=== PATIENT | female | born 1980 | race Caucasian/White ===

== ENCOUNTER 2016-05-24 14:12 | Outpatient (CLI) | payer MEDICAID | END 2016-05-24 14:13 | disposition home or self-care (01) | DX: J20.9 Acute bronchitis, unspecified (principal) ==

== ENCOUNTER 2016-07-02 14:13 | Outpatient (CLI) | payer MEDICAID | END 2016-07-02 14:14 | DX: I10 Essential (primary) hypertension (principal); Z13.1 Encounter for screening for diabetes mellitus; Z13.220 Encounter for screening for lipoid disorders; E66.01 Morbid (severe) obesity due to excess calories ==

== ENCOUNTER 2016-07-02 14:16 | Outpatient (CLI) | payer MEDICAID ==
--- NOTE | 2016-07-02 15:33 | XRAY Report ---
THREE-VIEW RIGHT KNEE: 07/02/2016 CLINICAL INDICATION: Pain. FINDINGS: AP, lateral, sunrise views of the right knee demonstrate no evidence of fracture or disloc ation. The joint spaces are preserved. No effusion is present. IMPRESSION: NORMAL RIGHT KNEE. JOB #: [id number] EXT JOB #:[id number]
== END 2016-07-02 14:17 | disposition home or self-care (01) ==
LOC: DI.S 14:16
PROVIDERS: ATTEND Nurse Practitioner Family
DX: M25.561 Pain in right knee (principal)

== ENCOUNTER 2016-07-25 12:35 | Outpatient (CLI) | payer MEDICAID | END 2016-07-25 12:36 | disposition home or self-care (01) | DX: L03.90 Cellulitis, unspecified (principal) ==

== ENCOUNTER 2016-07-25 13:18 | Outpatient (CLI) | payer MEDICAID | END 2016-07-25 13:19 | DX: L03.90 Cellulitis, unspecified (principal) ==

== ENCOUNTER 2016-11-27 14:55 | Outpatient (CLI) | payer MEDICAID ==
--- NOTE | 2016-11-27 16:33 | XRAY Report ---
TWO-VIEW CHEST: 11/27/2016 CLINICAL INDICATION: Shortness of breath. FINDINGS: Frontal and lateral views of the chest are compared to previous films of 05/24/2016. The cardiac silhouette is within normal limits. The lungs remain clear. No effusion or pneumothorax is present. IMPRESSION: NORMAL CHEST, UNCHANGED. :9 JOB #: [id number] EXT JOB #:[id number]
== END 2016-11-27 14:56 | disposition home or self-care (01) ==
LOC: DI.S 14:55
PROVIDERS: ATTEND Nurse Practitioner Family
DX: R06.02 Shortness of breath (principal)
CPT/HCPCS: 71020

== ENCOUNTER 2017-03-12 18:24 | Emergency (ER) | payer MEDICAID ==
--- NOTE | 2017-03-12 18:41 | ED Physician Documentation ---
History of Present Illness - Stated complaint Stated Complaint: CP - Chief complaint Chief Complaint: General - History obtained from History obtained from: Patient - History of Present Illness Timing: Other (36-year-old woman who had a DVT a little over a year ago because of combination of smoking, obesity, and oral contraceptive pills. She was maintained on Xarelto for a year and has been off of it for about 2 months. Last night she developed mild pain behind the left breast which today radiated in the left arm. She is currently pain-free. She does complain of a little bit of shortness of breath but denies pedal edema or calf pain.) Review of Systems Ten Systems: 10 systems reviewed and negative Constitutional: denies: Fever, Chills, Fatigue Cardiac: denies: Palpitations Respiratory: denies: Dyspnea, Cough PD PAST MEDICAL HISTORY - Past Medical History Past Medical History: Yes Cardiovascular: Hypertension, Deep vein thrombosis Respiratory: None Neuro: None Endocrine/Autoimmune: None GI: None STUDIO ASSOCIATE: None : None HEENT: None Psych: Depression, Anxiety Musculoskeletal: None Derm: None - Past Surgical History Past Surgical History: Yes General: EGD - Present Medications Home Medications: Ambulatory Orders Medication Instructions Recorded Confirmed ARIPiprazole [Abilify] 15 mg PO DAILY 11/01/13 03/12/17 DULoxetine [Cymbalta] 90 mg PO DAILY 11/01/13 03/12/17 Methadone 7 mg PO DAILY 06/08/15 03/12/17 Metoclopramide [Reglan] 10 mg PO DAILY 06/08/15 03/12/17 clonazePAM [Clonazepam] 1 mg PO TID 03/12/17 03/12/17 - Allergies Allergies/Adverse Reactions: Allergies Allergy/AdvReac Type Severity Reaction Status Date / Time No Known Drug Allergies Allergy Verified 05/20/15 14:13 - Social History Does the pt smoke?: Yes Smoking Status: Current every day smoker Does the pt drink ETOH?: No Does the pt have substance abuse?: No - Family History Family history: reports: Non contributory - Immunizations Immunizations are current?: Yes - POLST Patient has POLST: No PD ED PE NORMAL - Vitals Vital signs reviewed: Yes - General General: Alert and oriented X 3, No acute distress - HEENT HEENT: PERRL, EOMI - Neck Neck: Supple, no meningeal sign, No bony TTP - Cardiac Cardiac: Other (Tachycardic, regular, no murmur) - Respiratory Respiratory: No respiratory distress, Clear bilaterally - Abdomen Abdomen: Soft, Non tender - Extremities Extremities: No edema, No calf tenderness / cord - Neuro Neuro: Alert and oriented X 3, Normal speech - Psych Psych: Normal mood, Normal affect Results - Vitals Vitals: Vital Signs - 24 hr 03/12/17 03/12/17 03/12/17 18:30 20:27 21:11 Temperature 36.2 C L Heart Rate 129 H 99 103 H Respiratory 18 17 22 Rate Blood Pressure 159/104 H 155/78 H 159/109 H O2 Saturation 96 94 95 Oxygen O2 Source Room air - EKG (time done) 1832 Rate: Rate (enter#) (116) Rhythm: NSR, LAE [place]: Normal Intervals: Normal [place] QRS: Normal Ischemia: Normal ST segments Computer interpretation: Agree with computer - Labs Labs: Laboratory Tests 03/12/17 03/12/17 03/12/17 18:45 19:14 19:14 WBC 10.7 RBC 5.02 Hgb 14.6 Hct 43.8 MCV 87.3 MCH 29.1 MCHC 33.4 RDW 13.4 Plt Count 301 MPV 9.1 Neut # 7.5 H Lymph # 2.6 [place] # 0.5 Eos # 0.1 Baso # 0.1 Absolute Nucleated RBC 0.00 Nucleated RBC % 0.0 D-Dimer Sodium 136 Potassium 3.2 L Chloride 100 L Carbon Dioxide 25 Anion Gap 11.0 BUN 12 Creatinine 0.8 Estimated GFR (MDRD) 82 L Glucose 105 H Calcium 9.4 Total Bilirubin 0.4 AST 18 ALT 18 Alkaline Phosphatase 72 Troponin I Total Protein 7.1 Albumin 4.0 Globulin 3.1 Albumin/Globulin Ratio 1.3 Lipase 17 L Urine Color YELLOW Urine Clarity CLEAR Urine pH 6.0 Ur Specific [place] 1.025 Urine Protein NEGATIVE Urine Glucose (UA) NEGATIVE Urine Ketones 15 H Urine Occult Blood NEGATIVE Urine Nitrite NEGATIVE Urine Bilirubin NEGATIVE Urine Urobilinogen 0.2 (NORMAL) Ur Leukocyte Esterase NEGATIVE Ur Microscopic Review NOT INDICATED Urine Culture Comments NOT INDICATED Urine HCG, Qual NEGATIVE 03/12/17 03/12/17 19:14 19:14 WBC RBC Hgb Hct MCV MCH MCHC RDW Plt Count MPV Neut # Lymph # [place] # Eos # Baso # Absolute Nucleated RBC Nucleated RBC % D-Dimer 215.0 Sodium Potassium Chloride Carbon Dioxide Anion Gap BUN Creatinine Estimated GFR (MDRD) Glucose Calcium Total Bilirubin AST ALT Alkaline Phosphatase Troponin I < 0.04 Total Protein Albumin Globulin Albumin/Globulin Ratio Lipase Urine Color Urine Clarity Urine pH Ur Specific [place] Urine Protein Urine Glucose (UA) Urine Ketones Urine Occult Blood Urine Nitrite Urine Bilirubin Urine Urobilinogen Ur Leukocyte Esterase Ur Microscopic Review Urine Culture Comments Urine HCG, Qual - Rads (name of study) CT Angio chest Radiology: EMP read contemporaneously (Suboptimal bolus timing, no large PE, fatty liver.) PD MEDICAL DECISION MAKING - ED course ED course: 36-year-old woman with history of DVT presents with acute chest pain and some tachycardia. The tachycardia resolved without specific intervention, potentially anxiety. Biggest concern of course was for PE given her history, CT angiogram was done, and the results were nondiagnostic because of poor contrast bolus timing. Given this this was followed with a d-dimer which was negative. Departure - Departure Disposition: 01 Home, Self Care Clinical Impression: Chest pain Qualifiers: Chest pain type: unspecified Qualified Code(s): R07.9 - Chest pain, unspecified Condition: Good Record reviewed to determine appropriate education?: Yes Instructions: ED Chest Pain NonCardiac Comments: Call your doctor to arrange a follow-up appointment, make the next available appointment. In the interim, return anytime if worse or if new symptoms develop. Your blood pressure was elevated today on check into the emergency department. This does not mean that you have hypertension, it is a common phenomenon to come to the emergency department and have elevated blood pressure. I recommend that you see your primary care physician within the week to have it rechecked when you are feeling better.
[2017-03-12 18:59] LABS: BILIRUBIN,URINE NEGATIVE (NEGATIVE)
[2017-03-12 19:00] LABS: HCG UR QUAL NEGATIVE; UA CHARGE (STRIP ONLY) YES; UR CULTURE IF IND NOT INDICATED
[2017-03-12 19:31] LABS: ALBUMIN/GLOBULIN RATIO 1.3 (1.0-2.2); BILIRUBIN,TOTAL 0.4 mg/dL (0.2-1.0); CALCIUM 9.4 mg/dL (8.5-10.3); CREATININE 0.8 mg/dL (0.4-1.0); POTASSIUM 3.2 mmol/L (3.5-5.0); TOTAL PROTEIN 7.1 g/dL (6.7-8.2)
[2017-03-12 19:33] LABS: BASOPHILS # (AUTO) 0.1 10^3/uL (0.0-0.1); BASOPHILS % (AUTO) 0.5 %; EOSINOPHILS # (AUTO) 0.1 10^3/uL (0.0-0.7); EOSINOPHILS % (AUTO) 1.3 %; HCT - HEMATOCRIT 43.8 % (37.0-47.0); HGB - HEMOGLOBIN 14.6 g/dL (12.0-16.0); LYMPHOCYTES # (AUTO) 2.6 10^3/uL (1.5-3.5); LYMPHOCYTES % (AUTO) 24.2 %; MEAN CORPUSCULAR HEMOGLOBIN 29.1 pg (27.0-31.0); MEAN CORPUSCULAR HGB CONC 33.4 g/dL (32.0-36.0); MEAN CORPUSCULAR VOLUME 87.3 fL (81.0-99.0); MEAN PLATELET VOLUME 9.1 fL (7.9-10.8); MONOCYTES # (AUTO) 0.5 10^3/uL (0.0-1.0); MONOCYTES % (AUTO) 4.3 %; NEUTROPHILS # (AUTO) 7.5 10^3/uL (1.5-6.6); NEUTROPHILS % (AUTO) 69.7 %; RED BLOOD COUNT 5.02 10^6/uL (4.20-5.40); RED CELL DISTRIBUTION WIDTH 13.4 % (12.0-15.0); UNCORRECTED WHITE BLOOD COUNT 10.7 x10^3/uL; WHITE BLOOD COUNT 10.7 x10^3/uL (4.8-10.8)
[2017-03-12] MEDS ORDERED: IOPAMIDOL-300 100 ML VIAL ONE (19:35)
[2017-03-12] MEDS ORDERED: IOPAMIDOL-300 100 ML VIAL IVP ONE (20:12)
--- NOTE | 2017-03-12 20:50 | CT Preliminary Report ---
Exam: CT CHEST ANGIO (PE) IMPRESSION: 1. Suboptimal bolus timing. Study nondiagnostic for pulmonary emboli. 2. No acute pulmonary process. 3. Fatty liver. No mass. [facility] SITE ID: [id number]
--- NOTE | 2017-03-12 21:01 | CT Report ---
EXAM: CT ANGIOGRAM CHEST EXAM DATE: 03/12/2017 08:19 PM. CLINICAL HISTORY: Chest pain, history of PE. COMPARISON: 11/27/2016. TECHNIQUE: Routine helical imaging was performed through the chest in the pulmonary arterial phase. I V Contrast: 80 mL of Isovue 300. Reconstructions: Coronal 3-D MIP reconstructions.Sagittal and calvo l. In accordance with CT protocol optimization, one or more of the following dose reduction techniques w ere utilized for this exam: automated exposure control, adjustment of mA and/or KV based on patient s ize, or use of iterative reconstructive technique. FINDINGS: Pulmonary Arteries: Diagnostic quality: Suboptimal through the segmental arteries. No evidence for acute or chronic centr al pulmonary emboli. Evaluation of the segmental and subsegmental pulmonary arteries is limited due t o suboptimal bolus timing. RV/LV is within normal limits. There is no interventricular septal bowing. There is no reflux of cont rast material in the IVC. Lungs/Pleura: No consolidation, nodules, or edema. No effusions or pneumothorax. Mediastinum: Normal. No cardiac enlargement or adenopathy. Thoracic Aorta: Unremarkable. Upper Abdomen: Small incidental hiatal hernia. Fatty liver. No mass. Other: None. IMPRESSION: 1. Suboptimal bolus timing. Study nondiagnostic for pulmonary emboli. 2. No acute pulmonary process. 3. Fatty liver. No mass. [facility] Referring Provider Line: [phone] SITE ID: [id number]
[2017-03-12] MEDS ORDERED: ACETAMINOPHEN 325 MG TABLET PO STA (21:24)
[2017-03-12] MEDS ORDERED: ACETAMINOPHEN 325 MG TABLET PO ONE (21:35)
[2017-03-12 21:54] VITALS: BP 154/114
== END 2017-03-12 21:54 | disposition home or self-care (01) ==
LOC: ED 18:24
DX: R07.9 Chest pain, unspecified (principal); R00.0 Tachycardia, unspecified; I10 Essential (primary) hypertension; E66.9 Obesity, unspecified; Z87.891 Personal history of nicotine dependence
CPT/HCPCS: 36415; 71275; 80053; 81003; 81025; 83690; 84484; 85025; 85379; 93005; 99284; A9270; Q9967; 81001; 87086

== ENCOUNTER 2017-06-10 14:12 | Outpatient (CLI) | payer MEDICAID ==
[2017-06-11 12:42] LABS: HEPATITIS C ANTIBODY NON-REACTIVE (NON-REACTIVE)
[2017-06-11 14:32] LABS: HIV AG/AB 4TH GEN NON-REACTIVE (NON-REACTIVE)
[2017-06-12 10:59] LABS: HSV 2 IGG TYPE SPECIFIC AB <0.90 index
== END 2017-06-10 14:13 | disposition home or self-care (01) ==
LOC: LAB.N 14:12
PROVIDERS: ATTEND Registered Nurse
DX: Z11.3 Encounter for screening for infections with a predominantly sexual mode of transmission (principal)
CPT/HCPCS: 36415; 81599; 86592; 86695; 86696; 86803; 87389; 87491; 87591

== ENCOUNTER 2017-06-10 14:15 | Outpatient (CLI) | payer MEDICAID | END 2017-06-10 14:16 | disposition home or self-care (01) | LOC: LAB.R 14:15 | PROVIDERS: ATTEND Registered Nurse | DX: Z11.3 Encounter for screening for infections with a predominantly sexual mode of transmission (principal) | CPT/HCPCS: 87491; 87591 ==

== ENCOUNTER 2017-08-26 16:38 | Emergency (ER) | payer MEDICAID ==
[2017-08-26 17:19] VITALS: BP 146/106
[2017-08-26 17:38] LABS: BASOPHILS # (AUTO) 0.1 10^3/uL (0.0-0.1); EOSINOPHILS # (AUTO) 0.1 10^3/uL (0.0-0.7); EOSINOPHILS % (AUTO) 1.5 %; HGB - HEMOGLOBIN 13.7 g/dL (12.0-16.0); LYMPHOCYTES # (AUTO) 2.2 10^3/uL (1.5-3.5); LYMPHOCYTES % (AUTO) 23.9 %; MEAN CORPUSCULAR HEMOGLOBIN 29.3 pg (27.0-31.0); MEAN CORPUSCULAR HGB CONC 34.6 g/dL (32.0-36.0); MEAN CORPUSCULAR VOLUME 84.5 fL (81.0-99.0); MEAN PLATELET VOLUME 8.5 fL (7.9-10.8); MONOCYTES # (AUTO) 0.5 10^3/uL (0.0-1.0); MONOCYTES % (AUTO) 5.7 %; NEUTROPHILS # (AUTO) 6.2 10^3/uL (1.5-6.6); NEUTROPHILS % (AUTO) 67.9 %; PLT - PLATELET COUNT 332 10^3/uL (130-450); RED BLOOD COUNT 4.68 10^6/uL (4.20-5.40); RED CELL DISTRIBUTION WIDTH 13.8 % (12.0-15.0); WHITE BLOOD COUNT 9.2 x10^3/uL (4.8-10.8)
[2017-08-26 17:51] LABS: ALBUMIN 3.7 g/dL (3.2-5.5); BILIRUBIN,TOTAL 0.4 mg/dL (0.2-1.0); CALCIUM 8.9 mg/dL (8.5-10.3); CREATININE 0.6 mg/dL (0.4-1.0); TOTAL PROTEIN 7.3 g/dL (6.7-8.2)
--- NOTE | 2017-08-26 18:53 | ED Physician Documentation ---
PD HPI HEENT - Stated complaint Stated Complaint: TOOTH PX/CP - Chief complaint Chief Complaint: Cardiac - History obtained from History obtained from: Patient - History of Present Illness Timing - onset: How many weeks ago (has had tooth pain for couple of weeks.) Timing - details: Gradual onset Location: Tooth (right lower) Improves: Medication Associated symptoms: No: Fever, Trismus, Facial swelling Recently seen: Clinic (had been seen in clinic and Rx abx and nsaids for tooth; was doing better but hurting again since off the abx.) Review of Systems Constitutional: denies: Fever, Chills Nose: denies: Rhinorrhea / runny nose, Congestion Throat: reports: Dental pain / toothache. denies: Sore throat Cardiac: reports: Palpitations (intermittently). denies: Chest pain / pressure , Pedal edema, Calf pain Respiratory: denies: Dyspnea, Cough Neurologic: reports: Generalized weakness. 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 : None HEENT: None Psych: Depression, Anxiety Musculoskeletal: None Derm: None - Past Surgical History Past Surgical History: Yes General: EGD - Present Medications Home Medications: Ambulatory Orders Medication Instructions Recorded Confirmed DULoxetine [Cymbalta] 90 mg PO DAILY 11/01/13 08/26/17 clonazePAM [Clonazepam] 1 mg PO TID 03/12/17 08/26/17 Cephalexin [Keflex] 500 mg PO TID #20 capsule 08/26/17 HYDROcod/ACETAM 5/325 [[place] 5/325] 1 - 2 ea PO Q6H PRN #15 tablet 08/26/17 Lisinopril 5 mg PO DAILY #30 tablet 08/26/17 Potassium Chloride 10 meq PO BID #20 tablet.er 08/26/17 QUEtiapine [SEROquel] 2 - 3 tab PO PRN PRN 08/26/17 08/26/17 - Allergies Allergies/Adverse Reactions: Allergies Allergy/AdvReac Type Severity Reaction Status Date / Time No Known Drug Allergies Allergy Verified 05/20/15 14:13 - Social History Does the pt smoke?: Yes Smoking Status: Current every day smoker Does the pt drink ETOH?: No Does the pt have substance abuse?: No - Immunizations Immunizations are current?: Yes - POLST Patient has POLST: No PD ED PE NORMAL - Vitals Vital signs reviewed: Yes - General General: Alert and oriented X 3, No acute distress, Well developed/nourished - HEENT HEENT: Ears normal, Pharynx benign. No: Dentition benign (lower tooth pain with cavity. Cavit placed on the shallow cup of it. ) - Neck Neck: Supple, no meningeal sign, No adenopathy, No JVD, No bruit - Cardiac Cardiac: RRR, No murmur - Respiratory Respiratory: Clear bilaterally - Abdomen Abdomen: Soft, Non tender - Derm Derm: Normal color, Warm and dry - Extremities Extremities: No tenderness to palpate, Normal ROM s pain, No edema, No calf tenderness / cord - Neuro Neuro: Alert and oriented X 3, metalsmith helper 2-12 intact, No motor deficit, No sensory deficit, Normal speech, Other Results - Vitals Vitals: Oxygen O2 Source Room air - Labs Labs: Laboratory Tests 08/26/17 08/26/17 08/26/17 17:30 17:30 17:30 WBC 9.2 RBC 4.68 Hgb 13.7 Hct 39.5 MCV 84.5 MCH 29.3 MCHC 34.6 RDW 13.8 Plt Count 332 MPV 8.5 Neut # 6.2 Lymph # 2.2 [place] # 0.5 Eos # 0.1 Baso # 0.1 Absolute Nucleated RBC 0.00 Nucleated RBC % 0.0 Sodium 139 Potassium 2.6 L Chloride 101 Carbon Dioxide 28 Anion Gap 10.0 BUN 8 Creatinine 0.6 Estimated GFR (MDRD) 114 Glucose 100 Calcium 8.9 Magnesium Total Bilirubin 0.4 AST 21 ALT 16 Alkaline Phosphatase 75 Troponin I < 0.04 Total Protein 7.3 Albumin 3.7 Globulin 3.6 Albumin/Globulin Ratio 1.0 Lipase 13 L 08/26/17 17:30 WBC RBC Hgb Hct MCV MCH MCHC RDW Plt Count MPV Neut # Lymph # [place] # Eos # Baso # Absolute Nucleated RBC Nucleated RBC % Sodium Potassium Chloride Carbon Dioxide Anion Gap BUN Creatinine Estimated GFR (MDRD) Glucose Calcium Magnesium 2.0 Total Bilirubin AST ALT Alkaline Phosphatase Troponin I Total Protein Albumin Globulin Albumin/Globulin Ratio Lipase PD MEDICAL DECISION MAKING - ED course Complexity details: reviewed results, considered differential (feeling of weakness and some palpitations. She does have low potassium, but not on diuretic and denies vomiting/diarrhea, eating disorder. Presume dietary. She has tooth pain as well. ), d/w patient Departure - Departure Disposition: 01 Home, Self Care Clinical Impression: Mild hypertension, Pain due to dental caries, Hypokalemia Condition: Stable Record reviewed to determine appropriate education?: Yes Instructions: ED Cavity Dental, ED Diet High Potassium Follow-Up: Betina Peterson ARNP [Primary Care Provider] - Prescriptions: Cephalexin [Keflex] 500 mg PO TID #20 capsule HYDROcod/ACETAM 5/325 [[place] 5/325] 1 - 2 ea PO Q6H PRN #15 tablet PRN Reason: Pain Lisinopril 5 mg PO DAILY #30 tablet Potassium Chloride 10 meq PO BID #20 tablet.er Comments: Your blood pressures a little bit high but I went think it should preclude dental work. We can start a very low-dose blood pressure medicine as we do wanted to get too low when you are feeling well. Use some antibiotics and pain medicine for the tooth. Your potassium was low and take a potassium supplement twice daily for the next 10 days. Recheck with your primary care in about a week or so, call for an appointment. Follow-up with a dentist as soon as he is able to see you. Forms: Activity restrictions Discharge Date/Time: 08/26/17 20:14
[2017-08-26] MEDS ORDERED: HYDROcod/ACETAM 5/325 MG TABLET PO STA (19:16)
[2017-08-26] MEDS ORDERED: POTASSIUM BICARB 25 MEQ TABLET PO STA (19:16)
[2017-08-26] MEDS ORDERED: LISINOPRIL 5 MG TABLET PO STA (19:16)
[2017-08-26] MEDS ORDERED: cephALEXin 250 MG CAPSULE PO STA (19:17)
== END 2017-08-26 20:14 | disposition home or self-care (01) ==
LOC: ED 16:38
DX: I10 Essential (primary) hypertension (principal); K02.9 Dental caries, unspecified; E87.6 Hypokalemia; R94.31 Abnormal electrocardiogram [ECG] [EKG]; F17.200 Nicotine dependence, unspecified, uncomplicated; Z86.718 Personal history of other venous thrombosis and embolism
CPT/HCPCS: 36415; 80053; 83690; 83735; 84484; 85025; 93005; 99283; A9270

== ENCOUNTER 2017-10-27 14:19 | Emergency (ER) | payer MEDICAID ==
[2017-10-27 14:34] VITALS: BP 145/108
[2017-10-27] MEDS ORDERED: IBUPROFEN 800 MG TABLET PO STA (15:23)
[2017-10-27] MEDS ORDERED: DEXAMETHASONE 10 MG/ML VIAL PO STA (15:24)
--- NOTE | 2017-10-27 15:26 | ED Physician Documentation ---
History of Present Illness - Stated complaint Stated Complaint: LT EAR/JAW/HEAD PX - Chief complaint Chief Complaint: Heent - History obtained from History obtained from: Patient - History of Present Illness Timing: Other (1 month) Pain level max: 8 Pain level now: 6 Quality: aching, dull pain Improved by: nothing Worsened by: eating, chewing, touching the L ear - Additonal information Additional information: Patient saw a dentist 2 days ago and they state that her teeth are normal. Review of Systems Constitutional: denies: Fever, Chills Ears: reports: Ear pain (L) Nose: reports: Rhinorrhea / runny nose, Congestion, Other (Does have seasonal allergies to pollen but has not taken anything) Throat: reports: Sore throat Cardiac: denies: Chest pain / pressure Respiratory: denies: Dyspnea GI: denies: Nausea, Vomiting, Diarrhea : denies: Now EGA Skin: denies: Rash Musculoskeletal: denies: Neck pain, Back pain PD PAST MEDICAL HISTORY - Past Medical History Cardiovascular: Hypertension, Deep vein thrombosis Respiratory: None Endocrine/Autoimmune: None GI: None CURRENCY COUNTER: None : None HEENT: None Psych: Depression, Anxiety Musculoskeletal: None Derm: None - Past Surgical History Past Surgical History: Yes General: EGD - Present Medications Home Medications: Ambulatory Orders Medication Instructions Recorded Confirmed DULoxetine [Cymbalta] 90 mg PO DAILY 11/01/13 08/26/17 clonazePAM [Clonazepam] 1 mg PO TID 03/12/17 08/26/17 QUEtiapine [SEROquel] 2 - 3 tab PO PRN PRN 08/26/17 08/26/17 Cetirizine HCl/Pseudoephedrine 1 each PO BID PRN #30 tab.er.12h 10/27/17 [Zyrtec-D Tablet] Tramadol HCl 50 mg PO Q6H PRN #10 tablet 10/27/17 predniSONE [Prednisone] 40 mg PO DAILY #10 tablet 10/27/17 - Allergies Allergies/Adverse Reactions: Allergies Allergy/AdvReac Type Severity Reaction Status Date / Time No Known Drug Allergies Allergy Verified 10/27/17 14:34 - Social History Does the pt smoke?: Yes Smoking Status: Current every day smoker Does the pt drink ETOH?: No Does the pt have substance abuse?: No - Immunizations Immunizations are current?: Yes - POLST Patient has POLST: No PD ED PE NORMAL - Vitals Vital signs reviewed: Yes - General General: Alert and oriented X 3, No acute distress - HEENT HEENT: Moist mucous membranes, Dentition benign, Other (Mild posterior oropharyngeal erythema without tonsillar exudates. Uvula midline. Normal phonation. No trismus. Bilateral tympanic membranes have serous fluid present. No evidence of infection) - Neck Neck: Supple, no meningeal sign, No adenopathy - Cardiac Cardiac: RRR - Respiratory Respiratory: No respiratory distress, Clear bilaterally - Derm Derm: Warm and dry, No rash - Neuro Neuro: Alert and oriented X 3 Results - Vitals Vitals: Vital Signs - 24 hr 10/27/17 14:32 Temperature 36.4 C L Heart Rate 99 Respiratory 18 Rate Blood Pressure 145/108 H O2 Saturation 98 Oxygen O2 Source Room air PD MEDICAL DECISION MAKING - ED course Complexity details: considered differential, d/w patient ED course: Patient is a 37-year-old female with bilateral acute serous otitis media. Will place on decongestants and steroids. She is well-appearing, nontoxic. Denies any possibility of . Is not breast-feeding. Patient counseled regarding signs and symptoms for which I believe and urgent re-evaluation would be necessary. Patient with good understanding of and agreement to plan and is comfortable going home at this time This document was made in part using voice recognition software. While efforts are made to proofread this document, sound alike and grammatical errors may occur. - Sepsis Event Vital Signs: Vital Signs - 24 hr 10/27/17 14:32 Temperature 36.4 C L Heart Rate 99 Respiratory 18 Rate Blood Pressure 145/108 H O2 Saturation 98 Oxygen O2 Source Room air Departure - Departure Disposition: 01 Home, Self Care Clinical Impression: Serous otitis media Qualifiers: Chronicity: acute Laterality: left Recurrence: not specified as recurrent Qualified Code(s): H65.02 - Acute serous otitis media, left ear Condition: Good Instructions: ED Otitis Media Serous Adult Follow-Up: Betina Peterson ARNP [Primary Care Provider] - Within 1 week Prescriptions: Cetirizine HCl/Pseudoephedrine [Zyrtec-D Tablet] 1 each PO BID PRN #30 tab.er.12h PRN Reason: Nasal Congestion predniSONE [Prednisone] 40 mg PO DAILY #10 tablet Tramadol HCl 50 mg PO Q6H PRN #10 tablet PRN Reason: pain Comments: Return if you worsen. Take all medications as prescribed. Discharge Date/Time: 10/27/17 15:56
[2017-10-27] MEDS ORDERED: CHERRY SYRUP 10 ML UDC PO ONE (15:40)
== END 2017-10-27 15:56 | disposition home or self-care (01) ==
LOC: ED 14:19
DX: H65.02 Acute serous otitis media, left ear (principal); I10 Essential (primary) hypertension; Z86.718 Personal history of other venous thrombosis and embolism; F17.200 Nicotine dependence, unspecified, uncomplicated
CPT/HCPCS: 99283; A9270

== ENCOUNTER 2017-11-25 10:25 | Outpatient (CLI) | payer MEDICAID ==
[2017-11-25 18:04] LABS: BASOPHILS % (AUTO) 0.5 %; EOSINOPHILS # (AUTO) 0.1 10^3/uL (0.0-0.7); EOSINOPHILS % (AUTO) 0.9 %; HGB - HEMOGLOBIN 14.8 g/dL (12.0-16.0); LYMPHOCYTES # (AUTO) 3.8 10^3/uL (1.5-3.5); LYMPHOCYTES % (AUTO) 52.6 %; MEAN CORPUSCULAR HEMOGLOBIN 29.2 pg (27.0-31.0); MEAN CORPUSCULAR HGB CONC 33.1 g/dL (32.0-36.0); MEAN CORPUSCULAR VOLUME 88.1 fL (81.0-99.0); MEAN PLATELET VOLUME 9.3 fL (7.9-10.8); MONOCYTES # (AUTO) 0.5 10^3/uL (0.0-1.0); MONOCYTES % (AUTO) 6.6 %; NEUTROPHILS # (AUTO) 2.9 10^3/uL (1.5-6.6); NEUTROPHILS % (AUTO) 39.4 %; PLT - PLATELET COUNT 300 10^3/uL (130-450); RED BLOOD COUNT 5.06 10^6/uL (4.20-5.40); WHITE BLOOD COUNT 7.3 x10^3/uL (4.8-10.8)
[2017-11-25 19:11] LABS: ALBUMIN 4.2 g/dL (3.2-5.5); ALBUMIN/GLOBULIN RATIO 1.3 (1.0-2.2); BILIRUBIN,TOTAL 0.2 mg/dL (0.2-1.0); CALCIUM 8.9 mg/dL (8.5-10.3); CREATININE 0.9 mg/dL (0.4-1.0); TOTAL PROTEIN 7.5 g/dL (6.7-8.2)
== END 2017-11-25 10:26 | disposition home or self-care (01) ==
LOC: LAB.F 10:25
PROVIDERS: ATTEND Internal Medicine
DX: G50.0 Trigeminal neuralgia (principal)
CPT/HCPCS: 36415; 80053; 85025

== ENCOUNTER 2017-12-24 19:13 | Emergency (ER) | payer MEDICAID ==
[2017-12-24 19:21] VITALS: BP 137/93
[2017-12-24] MEDS ORDERED: BACITRACIN OINT TOP STA (19:36)
--- NOTE | 2017-12-24 19:38 | ED Physician Documentation ---
History of Present Illness - Stated complaint Stated Complaint: L FINGER BLISTER - Chief complaint Chief Complaint: Wound - History obtained from History obtained from: Patient - History of Present Illness Timing: Today Pain level max: 5 Pain level now: 4 Improved by: nothing Worsened by: palpation - Additonal information Additional information: blister to the L ring finger today. Saw PCP, but increased in size so came for eval. Patient states that she does not know what caused the blistering. Denies any thermal donovan. No new lotions or detergents. No new medications. No fevers. No possibility of Review of Systems : denies: Now EGA PD PAST MEDICAL HISTORY - Past Medical History Past Medical History: Yes Cardiovascular: Hypertension, Deep vein thrombosis Respiratory: None Endocrine/Autoimmune: None GI: None CHANGE MANAGEMENT LEAD: None : None HEENT: None Psych: Depression, Anxiety Musculoskeletal: None Derm: None - Past Surgical History Past Surgical History: Yes General: EGD - Present Medications Home Medications: Ambulatory Orders Medication Instructions Recorded Confirmed DULoxetine [Cymbalta] 90 mg PO DAILY 11/01/13 08/26/17 clonazePAM [Clonazepam] 1 mg PO TID 03/12/17 08/26/17 QUEtiapine [SEROquel] 2 - 3 tab PO PRN PRN 08/26/17 08/26/17 Cetirizine HCl/Pseudoephedrine 1 each PO BID PRN #30 tab.er.12h 10/27/17 [Zyrtec-D Tablet] Tramadol HCl 50 mg PO Q6H PRN #10 tablet 10/27/17 predniSONE [Prednisone] 40 mg PO DAILY #10 tablet 10/27/17 - Allergies Allergies/Adverse Reactions: Allergies Allergy/AdvReac Type Severity Reaction Status Date / Time No Known Drug Allergies Allergy Verified 12/24/17 19:19 - Social History Does the pt smoke?: Yes Smoking Status: Current every day smoker Does the pt drink ETOH?: No Does the pt have substance abuse?: No - Immunizations Immunizations are current?: Yes - POLST Patient has POLST: No PD ED PE NORMAL - Vitals Vital signs reviewed: Yes - General General: Alert and oriented X 3, No acute distress - HEENT HEENT: Moist mucous membranes - Derm Derm: Warm and dry - Extremities Extremities: Other (Left ring finger, there is an intact blister approximately 1 x 1.5 cm on the dorsal aspect of the left ring finger, distal phalanx that abuts the nail fold. No signs of infection. Neurovascularly intact) - Neuro Neuro: Alert and oriented X 3 - Psych Psych: Normal mood, Normal affect Results - Vitals Vitals: Vital Signs - 24 hr 12/24/17 19:18 Temperature 36.3 C L Heart Rate 125 H Respiratory 17 Rate Blood Pressure 137/93 H O2 Saturation 94 Oxygen O2 Source Room air PD MEDICAL DECISION MAKING - ED course Complexity details: considered differential, d/w patient ED course: Patient is a 37-year-old female who presents to the emergency department with a symptomatic left ring finger blister. After discussion, she would like it opened and unroofed. She was counseled regarding potential infectious risk with this. The blister was unroofed with an 18-gauge needle and the fluid was drained. Tolerated well. Tetanus is up-to-date. Wound was cleansed and bandaged. Will have her follow-up with her doctor for further care. Warnings of infection and instructions on wound care given at bedside. Patient counseled regarding signs and symptoms for which I believe and urgent re- evaluation would be necessary. Patient with good understanding of and agreement to plan and is comfortable going home at this time This document was made in part using voice recognition software. While efforts are made to proofread this document, sound alike and grammatical errors may occur. - Sepsis Event Vital Signs: Vital Signs - 24 hr 12/24/17 19:18 Temperature 36.3 C L Heart Rate 125 H Respiratory 17 Rate Blood Pressure 137/93 H O2 Saturation 94 Oxygen O2 Source Room air Departure - Departure Disposition: 01 Home, Self Care Clinical Impression: Blister Condition: Good Instructions: ED Blister Follow-Up: Betina Peterson ARNP [Primary Care Provider] - Within 1 week Comments: The cause of your blister is unclear. You can use motrin or tylenol as needed for pain. Apply antibiotic ointment twice daily until healed. Return if you worsen. Discharge Date/Time: 12/24/17 19:43
== END 2017-12-24 19:43 | disposition home or self-care (01) ==
LOC: ED 19:13
DX: S60.425A Blister (nonthermal) of left ring finger, initial encounter (principal); X58.XXXA Exposure to other specified factors, initial encounter; I10 Essential (primary) hypertension; Z86.718 Personal history of other venous thrombosis and embolism; F17.200 Nicotine dependence, unspecified, uncomplicated
CPT/HCPCS: 99283